=== PATIENT | male | born 1970 | race Caucasian/White ===

== ENCOUNTER → 2020-12-22 | Outpatient (CLI) | payer OTHER ==
[~2020-12-22] MED LIST: ACET-1600 PO; AMLO-150 PO; DIPH25CA61 PO; OLME-11 PO; TRAM50TA2 PO
[2020-12-22 10:04] LABS: ALANINE AMINOTRANSFERASE 81 U/L (12-78); ALBUMIN 4.2 g/dL (3.4-5.0); ANION GAP 9 mmol/L (5-15); CALCIUM 9.2 mg/dL (8.5-10.1); CHLORIDE 106 mmol/L (98-107); CREATININE 0.92 mg/dL (0.7-1.3)
[2020-12-22 10:07] LABS: ALKALINE PHOSPHATASE 53 U/L (45-117); BILIRUBIN,TOTAL 0.5 mg/dL (0.2-1.0); TOTAL PROTEIN 7.8 g/dL (6.4-8.2)
== END | disposition home or self-care (01) ==
LOC: STAR 09:10
PROVIDERS: ATTEND Orthopaedic Surgery
DX: Z01.812 Encounter for preprocedural laboratory examination (principal); Z20.822 Contact with and (suspected) exposure to COVID-19; M75.40 Impingement syndrome of unspecified shoulder; M75.81 Other shoulder lesions, right shoulder; M19.019 Primary osteoarthritis, unspecified shoulder
CPT/HCPCS: 36415; 80053; 87635

== ENCOUNTER 2020-12-28 09:53 | Day surgery (SDC) | payer OTHER ==
[~2020-12-28] VITALS: Ht 182.9 cm; Wt 119.9 kg
[2020-12-28 10:39] VITALS: BP 132/90
== END 2020-12-28 16:15 | disposition home or self-care (01) ==
LOC: OUT 09:53
PROVIDERS: ATTEND Orthopaedic Surgery
DX: S46.012A Strain of muscle(s) and tendon(s) of the rotator cuff of left shoulder, initial encounter (principal); S43.432A Superior glenoid labrum lesion of left shoulder, initial encounter; M75.42 Impingement syndrome of left shoulder; M19.012 Primary osteoarthritis, left shoulder; M65.812 Other synovitis and tenosynovitis, left shoulder; I10 Essential (primary) hypertension; E78.5 Hyperlipidemia, unspecified; M19.90 Unspecified osteoarthritis, unspecified site; X58.XXXA Exposure to other specified factors, initial encounter; Y93.89 Activity, other specified; Y92.89 Other specified places as the place of occurrence of the external cause; Y99.8 Other external cause status
CPT/HCPCS: 29823; 29824; 29826; 29827; 29828; 64415; C1713; J0171; J2250; J3010; J7120